=== PATIENT | male | born 1980 | race Two or more races ===

== ENCOUNTER 2018-08-21 17:17 | Emergency (ER) | payer MEDICAID ==
[~2018-08-21] VITALS: Ht 170.2 cm; Wt 129.3 kg
[2018-08-21] MEDS ORDERED: cloNIDine HCL 0.1 MG TAB PO ONE (18:00)
[2018-08-21 19:30] VITALS: BP 167/111
== END 2018-08-21 19:52 | disposition home or self-care (01) ==
LOC: ER 17:17
DX: I16.0 Hypertensive urgency (principal); I10 Essential (primary) hypertension; Z88.6 Allergy status to analgesic agent
CPT/HCPCS: 93005